=== PATIENT | female | born 1990 | race American Indian/Alaskan Native ===

== ENCOUNTER 2017-07-07 23:52 | Emergency (ER) | payer SELFPAY ==
[2017-07-08 00:04] VITALS: BP 125/77
== END 2017-07-08 02:50 | disposition left against medical advice (07) ==
LOC: ED 23:52
DX: Z53.21 Procedure and treatment not carried out due to patient leaving prior to being seen by health care provider (principal)

== ENCOUNTER 2021-01-31 21:13 | Emergency (ER) | payer SELFPAY ==
[2021-01-31] MEDS ORDERED: LIDOCAINE VISCOUS 2% 15 ML ORAL LIQD PO ONE (21:39)
[2021-01-31] MEDS ORDERED: ALUM-MAG HYDROXIDE-SIMETHICONE 200-200-20MG/5ML ORAL LIQD 30 ML PO ONE (21:39)
[2021-01-31] MEDS ORDERED: SODIUM CHLORIDE 0.9% 1000 ML 1,000 ML IV ONE (21:39)
[2021-01-31] MEDS ORDERED: ONDANSETRON 4 MG/2 ML INJ IV ONE (21:39)
[2021-01-31] MEDS ORDERED: fentaNYL 100 MCG/2 ML INJ IV ONE (22:01)
[2021-01-31] MEDS ORDERED: diphenhydrAMINE 50 MG/ML VIAL IV ONE (22:01)
--- NOTE | 2021-01-31 22:05 | Emergency Department Report ---
HPI - General Chief Complaint: Chest Pain Time Seen by Provider: 01/31/21 21:53 - HPI HPI: Room 39 Patient is a 30-year-old female present with a chief complaint of chest and abdominal pain. Patient states her symptoms began today with substernal chest and epigastric abdominal pain has been constant in nature. Patient admits to nausea and vomiting but denies diarrhea. Patient admits to subjective fever but denies history of cough, dysuria or hematuria. Patient is very histrionic and is not fully cooperative with interview ED Past Medical Hx - Past Medical History Previous Medical History?: No - Surgical History Past Surgical History?: Yes Additional Surgical History: 2014 - Family History Family history: no significant - Social History Smoking Status: Never Smoker Substance Use Type: None (Denies illicit drug), Alcohol (Daily) - Medications Home Medications: Home Medications Medication Instructions Recorded Confirmed Last Taken Type Famotidine [Pepcid] 20 mg PO BID #30 tablet 02/01/21 Unknown Rx HYDROcodone/APAP 5-325 [[place] 1 - 2 each PO Q6HR PRN #10 tablet 02/01/21 Unknown Rx 5/325] Ondansetron [Zofran ODT TAB] 8 mg PO Q8HR #20 tab.rapdis 02/01/21 Unknown Rx ED Review of Systems ROS: Stated complaint: CHEST PAIN/VOMITING FROM DRINKING ALCOHOL YESTERDA Other details as noted in HPI Constitutional: fever (Subjective) Eyes: denies: eye pain ENT: denies: throat pain Respiratory: denies: cough Cardiovascular: chest pain Endocrine: no symptoms reported Gastrointestinal: abdominal pain, nausea, vomiting. denies: diarrhea Genitourinary: denies: dysuria, hematuria Musculoskeletal: denies: back pain Neurological: denies: headache Physical Exam - Physical Exam Vital Signs: Vital Signs 01/31/21 21:20 Temperature 98.0 F Pulse Rate 79 Respiratory 20 Rate Blood Pressure 116/74 O2 Sat by Pulse 95 Oximetry Physical Exam: GENERAL: The patient is well-developed well-nourished female lying on stretcher who begins crying during interview. [] HEENT: Normocephalic. Atraumatic. Extraocular motions are intact. Patient has moist mucous membranes. NECK: Supple. Trachea midline CHEST/LUNGS: Clear to auscultation. There is no respiratory distress noted. HEART/CARDIOVASCULAR: Regular. There is no tachycardia. There is no gallop rub or murmur. ABDOMEN: Abdomen is soft, mild discomfort to palpation in the left lower quadrant left upper quadrant and epigastric region. Patient has normal bowel sounds. There is no abdominal distention. SKIN: There is no rash. There is no edema. There is no diaphoresis. NEURO: The patient is awake, alert, and oriented. The patient is cooperative. The patient has no focal neurologic deficits. The patient has normal speech. GCS 15 MUSCULOSKELETAL: There is no evidence of acute injury. ED Course Vital Signs 01/31/21 21:20 Temperature 98.0 F Pulse Rate 79 Respiratory 20 Rate Blood Pressure 116/74 O2 Sat by Pulse 95 Oximetry ED Medical Decision Making - Lab Data Result diagrams: 01/31/21 21:44 01/31/21 21:44 Laboratory Tests 01/31/21 01/31/21 01/31/21 21:44 21:44 21:44 WBC 13.4 H RBC 4.50 Hgb 12.8 Hct 38.9 MCV 87 MCH 29 MCHC 33 RDW 13.6 Plt Count 318 Lymph % (Auto) 14.6 [place] % (Auto) 3.0 Eos % (Auto) 0.1 Baso % (Auto) 0.4 Lymph # (Auto) 1.9 [place] # (Auto) 0.4 Eos # (Auto) 0.0 Baso # (Auto) 0.1 Seg Neutrophils % 81.9 H Seg Neutrophils # 11.0 H D-Dimer Sodium 140 Potassium 3.2 L Chloride 101.7 Carbon Dioxide 22 Anion Gap 20 BUN 10 Creatinine 0.4 L Estimated GFR > 60 BUN/Creatinine Ratio 25 Glucose 129 H Calcium 9.2 Total Bilirubin 0.50 AST 14 ALT 14 Alkaline Phosphatase 56 Troponin T < 0.010 Total Protein 7.7 Albumin 4.4 Albumin/Globulin Ratio 1.3 Lipase 34 Urine Color Urine Turbidity Urine pH Ur Specific [place] Urine Protein Urine Glucose (UA) Urine Ketones Urine Blood Urine Nitrite Urine Bilirubin Urine Urobilinogen Ur Leukocyte Esterase Urine WBC (Auto) Urine RBC (Auto) U Epithel Cells (Auto) Urine Mucus Urine HCG, Qual 01/31/21 01/31/21 22:41 Unknown WBC RBC Hgb Hct MCV MCH MCHC RDW Plt Count Lymph % (Auto) [place] % (Auto) Eos % (Auto) Baso % (Auto) Lymph # (Auto) [place] # (Auto) Eos # (Auto) Baso # (Auto) Seg Neutrophils % Seg Neutrophils # D-Dimer 216.93 Sodium Potassium Chloride Carbon Dioxide Anion Gap BUN Creatinine Estimated GFR BUN/Creatinine Ratio Glucose Calcium Total Bilirubin AST ALT Alkaline Phosphatase Troponin T Total Protein Albumin Albumin/Globulin Ratio Lipase Urine Color Yellow Urine Turbidity Hazy Urine pH 8.0 H Ur Specific [place] 1.025 Urine Protein 100 mg/dl Urine Glucose (UA) Neg Urine Ketones 20 Urine Blood Neg Urine Nitrite Neg Urine Bilirubin Neg Urine Urobilinogen 2.0 Ur Leukocyte Esterase Neg Urine WBC (Auto) < 1.0 Urine RBC (Auto) 3.0 U Epithel Cells (Auto) 22.0 H Urine Mucus 2+ Urine HCG, Qual Negative - EKG Data -: EKG Interpreted by Me EKG shows normal: sinus rhythm Rate: normal - EKG Data When compared to previous EKG there are: previous EKG unavailable Interpretation: normal EKG, other (No ischemic changes seen) - Radiology Data Radiology results: report reviewed (Chest x-ray, CT abdomen pelvis), image reviewed (Chest x-ray, CT abdomen pelvis) interpreted by me: Chest x-ray-no definite focal infiltrates, no pneumothorax [facility] [address] [place] [address] XRay Report Signed Patient: BERNADINE MCDONALD MR#: [id number] : 1990 Acct:[id number] Age/Sex: 30 / F ADM Date: 01/31/21 Loc: ED Attending Dr: Ordering Physician: SANJU IRIZARRY MD Date of Service: 01/31/21 Procedure(s): XR chest 1V ap Accession Number(s): [id number] cc: SANJU IRIZARRY MD Fluoro Time In Minutes: CHEST 1 VIEW INDICATION: chest pain. COMPARISON: None. FINDINGS: Support devices: None. Heart: Normal. Lungs/Pleura: No acute pulmonary or pleural findings. IMPRESSION: 1. No acute findings. Signer Name: Jose Arellano MD Signed: 01/31/2021 11:49 PM Workstation Name: [id number] Transcribed By: RUKHSANA Dictated By: Jose Arellano MD Electronically Authenticated By: Jose Arellano MD Signed Date/Time: 01/31/212348 DD/ 48 TD/TT: Print Cancel [facility] [address] [place] [address] Cat Scan Report Signed Patient: BERNADINE MCDONALD MR#: [id number] : 1990 Acct:[id number] Age/Sex: 30 / F ADM Date: 01/31/21 Loc: ED Attending Dr: Ordering Physician: SANJU IRIZARRY MD Date of Service: 01/31/21 Procedure(s): CT abdomen pelvis w con Accession Number(s): [id number] cc: SANJU IRIZARRY MD CT ABDOMEN AND PELVIS WITH IV CONTRAST INDICATION: Epigastric abdominal pain with nausea and vomiting. COMPARISON: None available. TECHNIQUE: All CT scans at this facility use dose modulation, automated exposure control, iterative reconstruction or weight based dosing, when appropriate, to reduce radiation dose to as low as reasonably achievable. FINDINGS: Lung Bases: No significant abnormality. Skeletal System: No acute abnormality. ABDOMEN: Liver: No significant abnormality. Gallbladder: No significant abnormality. Bile Ducts: No significant abnormality. Adrenals: No significant abnormality. Right Kidney: No significant abnormality. Left Kidney: No significant abnormality. Pancreas: No significant abnormality. Spleen: No significant abnormality. Upper GI tract: No significant abnormality. Lymph Nodes: No significant adenopathy. Aorta: No significant abnormality. Additional Findings: No significant abnormality. PELVIS: Colon: No acute abnormality. Urinary Bladder and Distal Ureters: No significant abnormality. Appendix: No significant abnormality. Lymph Nodes: No significant adenopathy. Additional Findings: None. IMPRESSION: 1. No acute pr ocess in the abdomen or pelvis. 2. Incidental findings, as above. Signer Name: Jose Arellano MD Signed: 02/01/2021 12:07 AM Workstation Name: [id number] Transcribed By: Dictated By: Jose Arellano MD Electronically Authenticated By: Jose Arellano MD Signed Date/Time: 02/01/21 0007 DD/ 0005 TD/TT: Print Cancel - Differential Diagnosis Pancreatitis, GERD, PE, pericarditis Critical care attestation.: If time is entered above; I have spent that time in minutes in the direct care of this critically ill patient, excluding procedure time. ED Disposition Clinical Impression: Atypical chest pain, Acute abdominal pain, Nausea & vomiting Disposition: 01 HOME / SELF CARE / HOMELESS Is pt being admited?: No Does the pt Need Aspirin: No Condition: Stable Instructions: Nonspecific Chest Pain, Adult Additional Instructions: Return to the emergency department should you develop worsening symptoms, inability to tolerate food or liquids, high fever or any other concerns Prescriptions: HYDROcodone/APAP 5-325 [[place] 5/325] 1 - 2 each PO Q6HR PRN #10 tablet PRN Reason: Pain Famotidine [Pepcid] 20 mg PO BID #30 tablet Ondansetron [Zofran ODT TAB] 8 mg PO Q8HR #20 tab.rapdis Referrals: BASILIO CONCEPCION MD [Staff Physician] - 3-5 Days (Dr. Concepcion is a manager maritime. Please follow-up with him for further evaluation) [facility] [Provider Group] - MIN (Please follow-up with the [facility] to be established as a patient) Time of Disposition: 00:45
[2021-01-31 22:13] LABS: Basophils # (Auto) 0.1 K/mm3 (0.0-0.1); Basophils % (Auto) 0.4 % (0.0-1.8); Eosinophils % (Auto) 0.1 % (0.0-4.3); Hemoglobin 12.8 gm/dl (10.1-14.3); Lymphocytes # (Auto) 1.9 K/mm3 (1.2-5.4); Lymphocytes % (Auto) 14.6 % (13.4-35.0); Monocytes # (Auto) 0.4 K/mm3 (0.0-0.8)
[2021-01-31 22:19] LABS: Hematocrit 38.9 % (30.3-42.9); Mean Corpuscular HGB Conc 33 % (30-34); Mean Corpuscular Volume 87 fl (79-97); Platelet Count 318 K/mm3 (140-440); Red Cell Distribution Width 13.6 % (13.2-15.2)
[2021-01-31 22:32] LABS: Alanine Aminotransferase 14 units/L (7-56); Albumin 4.4 g/dL (3.9-5); Blood Urea Nitrogen 10 mg/dL (7-17); Calcium 9.2 mg/dL (8.4-10.2); Hemolysis Index 2
[2021-01-31 22:59] LABS: Bilirubin,Urine NEG (Negative); Blood,Urine NEG (Negative); Color,Urine Yellow (Yellow); Mucus,Urine 2+ /HPF; WBC,Urine < 1.0 /HPF (0.0-6.0)
[2021-01-31 23:00] LABS: BUN/Creatinine Ratio 25
[2021-01-31 23:02] LABS: HCG Qualitative,Urine Negative (Negative)
[2021-01-31] MEDS ORDERED: POTASSIUM CHLORIDE ER 20 MEQ TAB PO ONE (23:20)
--- NOTE | 2021-01-31 23:53 | XRay Report ---
CHEST 1 VIEW INDICATION: chest pain. COMPARISON: None. FINDINGS: Support devices: None. Heart: Normal. Lungs/Pleura: No acute pulmonary or pleural findings. IMPRESSION: 1. No acute findings. Signer Name: Jose Arellano MD Signed: 01/31/2021 11:49 PM Workstation Name: [id number]
--- NOTE | 2021-02-01 00:11 | Cat Scan Report ---
CT ABDOMEN AND PELVIS WITH IV CONTRAST INDICATION: Epigastric abdominal pain with nausea and vomiting. COMPARISON: None available. TECHNIQUE: All CT scans at this facility use dose modulation, automated exposure control, iterative reconstructi on or weight based dosing, when appropriate, to reduce radiation dose to as low as reasonably achieva ble. FINDINGS: Lung Bases: No significant abnormality. Skeletal System: No acute abnormality. ABDOMEN: Liver: No significant abnormality. Gallbladder: No significant abnormality. Bile Ducts: No significant abnormality. Adrenals: No significant abnormality. Right Kidney: No significant abnormality. Left Kidney: No significant abnormality. Pancreas: No significant abnormality. Spleen: No significant abnormality. Upper GI tract: No significant abnormality. Lymph Nodes: No significant adenopathy. Aorta: No significant abnormality. Additional Findings: No significant abnormality. PELVIS: Colon: No acute abnormality. Urinary Bladder and Distal Ureters: No significant abnormality. Appendix: No significant abnormality. Lymph Nodes: No significant adenopathy. Additional Findings: None. IMPRESSION: 1. No acute process in the abdomen or pelvis. 2. Incidental findings, as above. Signer Name: Jose Arellano MD Signed: 02/01/2021 12:07 AM Workstation Name: [id number]
[2021-02-01 01:03] VITALS: BP 145/99
--- NOTE | 2021-02-01 09:33 | Electrocardiograph Report ---
[facility] Test Date: 2021-02-01 Test Time: 00:35:56 Pat Name: BERNADINE MCDONALD Department: Room: Gender: F Digital Marketing Analyst: MAURY : 1990 Requested By: OTNY SHAIKH Order Number: [id number] Reading MD: Chago Hi Measurements Intervals [place] Rate: 66 P: 15 NV: 170 QRS: 53 QRSD: 66 T: 34 QT: 403 QTc: 422 Interpretive Statements Sinus rhythm No previous ECG available for comparison Electronically Signed On 02-01-2021 9:33:32 EDT by Chago Hi
== END 2021-02-01 01:06 | disposition home or self-care (01) ==
LOC: ED 21:13
DX: R07.89 Other chest pain (principal); R10.13 Epigastric pain; R11.2 Nausea with vomiting, unspecified; Z98.890 Other specified postprocedural states; Z72.89 Other problems related to lifestyle
CPT/HCPCS: 36415; 71045; 74177; 80053; 81001; 81025; 83690; 84484; 85025; 85379; 93005; 96361; 96374; 96375; 99284; J1200; J2405; J3010; Q9967